=== PATIENT | female | born 1950 | race Caucasian/White ===

== ENCOUNTER 2017-07-04 10:15 | Outpatient (RCR) | payer MEDICARE | END 2017-07-05 | disposition home or self-care (01) | LOC: PTY 10:15 | DX: S76.311S Strain of muscle, fascia and tendon of the posterior muscle group at thigh level, right thigh, sequela (principal) | CPT/HCPCS: 97035; 97110; 97140; 97162; G0283; G8978; G8979 ==

== ENCOUNTER 2017-07-28 13:25 | Outpatient (RCR) | payer MEDICARE, MEDICAID | END 2017-08-05 | disposition home or self-care (01) | LOC: PTY 13:25 | DX: S76.311S Strain of muscle, fascia and tendon of the posterior muscle group at thigh level, right thigh, sequela (principal) | CPT/HCPCS: 97035; 97110; 97112; 97140; G0283; G8978; G8979 ==